=== PATIENT | female | born 1990 | race Caucasian/White ===

== ENCOUNTER 2017-12-16 12:49 | Emergency (ER) | payer OTHER | END 2017-12-16 15:38 | disposition home or self-care (01) | LOC: FTE 12:49 | DX: H61.23 Impacted cerumen, bilateral (principal) | CPT/HCPCS: 69209; 99283-25 ==

== ENCOUNTER 2018-06-02 03:34 | Inpatient (IN) | payer OTHER ==
[2018-06-02] MEDS ORDERED: BISACODYL (EC) 5 MG TAB PO (04:30)
[2018-06-02] MEDS ORDERED: ACETAMINOPHEN 325 MG TAB PO (04:30)
[2018-06-02] MEDS ORDERED: VANCOMYCIN IV PER PHARMACY XX (04:30)
[2018-06-02] MEDS ORDERED: NACL 0.9% 3 ML SYG IV (04:30)
[2018-06-02] MEDS ORDERED: DOCUSATE SODIUM 100 MG CAP PO (04:30)
[2018-06-02] MEDS ORDERED: ONDANSETRON 4 MG INJ IV (04:30)
[2018-06-02] MEDS ORDERED: HYDROCODONE/APAP (5/325) TAB PO (04:30)
[2018-06-02] MEDS: CLINDAMYCIN 900 MG/D5W (PMX) 50 ML IVPB ×3 (04:46→22:13)
[2018-06-02 07:22] LABS: ADD MAN DIFF? NO
[2018-06-02 07:29] LABS: WHITE BLOOD COUNT 7.2 10^3/ul (4.8-10.8)
[2018-06-02 07:29] LABS: BASOPHIL # 0.1 10^3/ul (0.0-0.1); BASOPHILS % 0.8 % (0.0-2.0); EOSINOPHILS # 0.4 10^3/ul (0.0-0.5); EOSINOPHILS % 5.8 % (0.0-7.0); HEMATOCRIT 31.4 % (37.0-47.0); HEMOGLOBIN 9.8 g/dl (12.0-16.0); LYMPHOCYTES # 2.7 10^3/ul (0.8-2.9); LYMPHOCYTES % 37.2 % (15.0-51.0); MEAN CORPUSCULAR HEMOGLOBIN 26.5 pg (29.0-33.0); MEAN CORPUSCULAR HGB CONC 31.2 g/dl (32.0-37.0); MEAN CORPUSCULAR VOLUME 84.9 fl (82.0-101.0); MEAN PLATELET VOLUME 9.1 fl (7.4-10.4); MONOCYTE # 0.6 10^3/ul (0.3-0.9); MONOCYTES % 8.4 % (0.0-11.0); NEUTROPHIL # 3.5 10^3/ul (1.6-7.5); NEUTROPHILS % 47.7 % (39.0-77.0); PLATELET COUNT 401 10^3/UL (140-415); RED CELL DISTRIBUTION WIDTH 13.2 % (11.5-14.5)
[2018-06-02 07:45] LABS: ALANINE AMINOTRANSFERASE 17 IU/L (13-69); ALBUMIN 3.4 g/dl (3.3-4.9); ALBUMIN/GLOBULIN RATIO 0.89; ALKALINE PHOSPHATASE 84 IU/L (42-121); ANION GAP 10 (5-13); ASPARTATE AMINO TRANSFERASE 22 IU/L (15-46); BLOOD UREA NITROGEN 7 mg/dl (7-20); CALCIUM 9.1 mg/dl (8.4-10.2); CARBON DIOXIDE 30 mmol/L (21-31); CHLORIDE 103 mmol/L (97-110); CREATININE 0.63 mg/dl (0.44-1.00); Estimated GFR > 60 mL/min (>60); GLUCOSE 121 mg/dl (70-220); POTASSIUM 3.6 mmol/L (3.5-5.1); SODIUM 143 mmol/L (135-144); TOTAL PROTEIN 7.2 g/dl (6.1-8.1)
[2018-06-02 07:45] LABS: LACTIC ACID 1.3 mmol/L (0.5-2.0)
[2018-06-02 07:46] LABS: CHOL/HDL RATIO 7.2 RATIO; HDL CHOLESTEROL 19 mg/dl (33-83); LDL CHOLESTEROL,CALCULATED 91 mg/dl; TRIGLYCERIDES 140 mg/dl (0-149)
[2018-06-02 07:46] LABS: CHOLESTEROL 138 mg/dl (100-200)
[2018-06-02 09:05] LABS: ERYTHROCYTE SEDIMENTATION RATE 54 mm/Hr (0-20)
[2018-06-02 12:11] LABS: IRON 31 ug/dl (35-150)
[2018-06-02 12:21] LABS: % IRON SATURATION 10 % SAT (22-52); TOTAL IRON BINDING CAPACITY 326 ug/dl (241-421)
[2018-06-02 12:49] LABS: HEPATITIS B SURFACE ANTIGEN NEGATIVE (NEGATIVE)
[2018-06-02 13:06] LABS: HEPATITIS C VIRAL ANTIBODY NEGATIVE (NEGATIVE)
[2018-06-02 19:55] LABS: RAPID PLASMA REAGIN NONREACTIVE (NR)
[2018-06-02] MEDS: HEPARIN 5,000 UNIT/1 ML VIAL SC (21:00)
[2018-06-03] MEDS: CLINDAMYCIN 900 MG/D5W (PMX) 50 ML IVPB ×3 (06:02→21:44)
[2018-06-03] MEDS: HEPARIN 5,000 UNIT/1 ML VIAL SC ×2 (09:00→20:13)
[2018-06-03 10:55] LABS: ADD MAN DIFF? NO
[2018-06-03 10:58] LABS: BASOPHIL # 0.1 10^3/ul (0.0-0.1); BASOPHILS % 0.9 % (0.0-2.0); EOSINOPHILS # 0.4 10^3/ul (0.0-0.5); EOSINOPHILS % 5.3 % (0.0-7.0); HEMATOCRIT 34.2 % (37.0-47.0); HEMOGLOBIN 10.7 g/dl (12.0-16.0); LYMPHOCYTES # 2.2 10^3/ul (0.8-2.9); LYMPHOCYTES % 32.7 % (15.0-51.0); MEAN CORPUSCULAR HEMOGLOBIN 26.3 pg (29.0-33.0); MEAN CORPUSCULAR HGB CONC 31.3 g/dl (32.0-37.0); MONOCYTE # 0.6 10^3/ul (0.3-0.9); MONOCYTES % 8.7 % (0.0-11.0); NEUTROPHIL # 3.6 10^3/ul (1.6-7.5); NEUTROPHILS % 52.1 % (39.0-77.0); PLATELET COUNT 433 10^3/UL (140-415); RED BLOOD COUNT 4.07 10^6/ul (4.20-5.40); RED CELL DISTRIBUTION WIDTH 13.3 % (11.5-14.5)
[2018-06-03 10:58] LABS: WHITE BLOOD COUNT 6.8 10^3/ul (4.8-10.8)
[2018-06-03 11:16] LABS: ALANINE AMINOTRANSFERASE 18 IU/L (13-69); ALBUMIN 3.6 g/dl (3.3-4.9); ALBUMIN/GLOBULIN RATIO 0.94; ALKALINE PHOSPHATASE 84 IU/L (42-121); ANION GAP 8 (5-13); ASPARTATE AMINO TRANSFERASE 25 IU/L (15-46); BLOOD UREA NITROGEN 10 mg/dl (7-20); CALCIUM 9.2 mg/dl (8.4-10.2); CARBON DIOXIDE 28 mmol/L (21-31); CHLORIDE 105 mmol/L (97-110); CREATININE 0.58 mg/dl (0.44-1.00); Estimated GFR > 60 mL/min (>60); GLUCOSE 93 mg/dl (70-220); POTASSIUM 4.2 mmol/L (3.5-5.1); SODIUM 141 mmol/L (135-144); TOTAL PROTEIN 7.4 g/dl (6.1-8.1)
[2018-06-03 11:18] LABS: HEMOGLOBIN A1C 5.7 % (0-5.9)
[2018-06-03] MEDS: SOD FERRIC GLUC COMPLX 125 MG in SOD CHLORIDE 0.9% 100 ML IVPB (17:35)
[2018-06-04] MEDS: CLINDAMYCIN 900 MG/D5W (PMX) 50 ML IVPB ×3 (05:12→21:07)
[2018-06-04] MEDS: HEPARIN 5,000 UNIT/1 ML VIAL SC ×2 (08:08→21:00)
[2018-06-04] MEDS: SOD FERRIC GLUC COMPLX 125 MG in SOD CHLORIDE 0.9% 100 ML IVPB (12:22)
[2018-06-05] MEDS: CLINDAMYCIN 900 MG/D5W (PMX) 50 ML IVPB ×2 (05:32→14:26)
[2018-06-05] MEDS: HEPARIN 5,000 UNIT/1 ML VIAL SC (08:44)
[2018-06-05] MEDS: SOD FERRIC GLUC COMPLX 125 MG in SOD CHLORIDE 0.9% 100 ML IVPB (12:17)
[2018-06-05] MEDS ORDERED: CEFTRIAXONE 1 GM/50 ML (PMX) 50 ML IVPB (14:30)
== END 2018-06-05 16:30 | disposition left against medical advice (07) | DRG 603 ==
LOC: 5EC 03:34
DX: L02.414 Cutaneous abscess of left upper limb (principal); F11.20 Opioid dependence, uncomplicated; F19.10 Other psychoactive substance abuse, uncomplicated; F17.200 Nicotine dependence, unspecified, uncomplicated; D50.9 Iron deficiency anemia, unspecified; L03.114 Cellulitis of left upper limb
CPT/HCPCS: 80053; 80061; 80307; 83036; 83540; 83605; 84443; 84703; 85025; 85651; 86592; 86803; 87040; 87081; 87340; 93306; 99217

== ENCOUNTER 2018-06-09 02:26 | Emergency (ER) | payer OTHER | END 2018-06-09 04:55 | disposition home or self-care (01) | LOC: FTE 02:26 | DX: L03.114 Cellulitis of left upper limb (principal); Z87.891 Personal history of nicotine dependence | CPT/HCPCS: 99283; Z7502 ==

== ENCOUNTER 2018-07-23 23:38 | Emergency (ER) | payer SELFPAY, OTHER | END 2018-07-23 23:57 | disposition left against medical advice (07) | LOC: E/R 23:38 | DX: Z53.21 Procedure and treatment not carried out due to patient leaving prior to being seen by health care provider (principal) ==